=== PATIENT | male | born 1945 | race Caucasian/White ===

== ENCOUNTER 2023-09-11 09:21 | Outpatient (CLI) | payer MEDICARE, OTHER, SELFPAY | END 2023-09-11 09:22 | disposition home or self-care (01) | LOC: NFLDREF 09-12 10:40 | PROVIDERS: Visit Provider Registered Nurse | DX: R30.0 Dysuria (principal); N39.0 Urinary tract infection, site not specified | CPT/HCPCS: 87086; 87186 ==

== ENCOUNTER 2023-09-23 09:08 | Outpatient (REF) | payer MEDICARE, OTHER, SELFPAY | END 2023-09-23 09:09 | disposition home or self-care (01) | LOC: NFLDREF 09:08 | PROVIDERS: Visit Provider Registered Nurse | DX: R30.0 Dysuria (principal); N39.0 Urinary tract infection, site not specified | CPT/HCPCS: 87086; 87186 ==